=== PATIENT | male | born 2000 | race Hispanic/Latino ===

== ENCOUNTER 2024-09-27 20:38 | Emergency (ER) | payer SELFPAY ==
[~2024-09-27] VITALS: Ht 189.2 cm; Wt 138.8 kg
[2024-09-27 21:31] VITALS: PULSE 74; RESP 18; TEMP 98.6
[2024-09-27] MEDS: TRAMADOL HCL 50 MG TAB PO ONE (22:03)
[2024-09-27] MEDS ORDERED: NAPROXEN250 MG PO (23:13)
[2024-09-28] MEDS ORDERED: ULTRAM 50MG50 MG PO (00:16)
[2024-09-28 00:30] VITALS: BP 176/84; PULSE 74; RESP 18; TEMP 98.6; O2SAT 100
== END 2024-09-28 00:30 | disposition home or self-care (01) ==
LOC: FSED 21:31
DX: S92.211A Displaced fracture of cuboid bone of right foot, initial encounter for closed fracture (principal); X50.1XXA Overexertion from prolonged static or awkward postures, initial encounter; Y92.89 Other specified places as the place of occurrence of the external cause
CPT/HCPCS: 99283